=== PATIENT | male | born 1985 | race Caucasian/White ===

== ENCOUNTER 2018-04-06 03:34 | Emergency (ER) | payer OTHER ==
[2018-04-06 03:40] VITALS: RESP 16; TEMP 98.3
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
[2018-04-06 05:02] VITALS: BP 132/83; PULSE 75
== END 2018-04-06 04:55 | disposition home or self-care (01) ==
LOC: EC 03:34
DX: S39.011A Strain of muscle, fascia and tendon of abdomen, initial encounter (principal); M54.5 Low back pain; Z98.890 Other specified postprocedural states; F17.200 Nicotine dependence, unspecified, uncomplicated; X50.0XXA Overexertion from strenuous movement or load, initial encounter
CPT/HCPCS: 99283

== ENCOUNTER 2018-05-19 15:20 | Emergency (ER) | payer BC ==
[2018-05-19] MEDS ORDERED: KETOROLAC 60 MG/2 ML VIAL IM STA (16:02)
--- NOTE | 2018-05-19 16:45 | XR ---
EXAMINATION TYPE: XR Hip Bilateral and AP pelvis DATE OF EXAM: 05/19/2018 COMPARISON: NONE HISTORY: Hip pain TECHNIQUE: 5 views of the pelvis and both hips were obtained. FINDINGS: The pelvic ring is intact. Proximal femurs and hip joints appear normal. There is no sign of hip dysp lasia. Sacroiliac joints appear normal. Impression normal pelvis and bilateral hip exam.
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
[2018-05-19] MEDS ORDERED: ACET/COD 300 MG/30 MG STARTER PACK 6 TAB BTL PO STA (17:41)
[2018-05-19 18:06] VITALS: BP 124/59; PULSE 84; RESP 18; TEMP 98.2
== END 2018-05-19 18:05 | disposition home or self-care (01) ==
LOC: EC 15:20
DX: M51.26 Other intervertebral disc displacement, lumbar region (principal); F17.200 Nicotine dependence, unspecified, uncomplicated
CPT/HCPCS: 73521; 72131; 99284; 96372; J1885